=== PATIENT | female | born 1975 | race Caucasian/White ===

== ENCOUNTER → 2017-03-13 | Day surgery (SDC) | payer OTHER ==
[~2017-03-13] MED LIST: ACETAMINOPHEN 1000 MG/100 ML 100 ML IV ONE; ACETAMINOPHEN/HYDROcodone 325 MG/5 MG TAB ONE; BACITRACIN IM FOR SOLN 50,000 UNIT VIAL ONE; BUPIVACAINE/EPINEPHRINE 0.25% 50 ML VIAL ONE; EPINEPHrine HCL (1:1000) 1 MG/ML VIAL OTHER ONE; GENTAMICIN SULFATE 80 MG/2 ML VIAL ONE; KETOROLAC TROMETHAMINE 30 MG/ML (IVP) VIAL IV PUSH ONE; LACTATED RINGER'S 1,000 ML BAG IV ONE; LIDOCAINE 1%/EPINEPHrine 1:200,000 PF SOLN 30 ML VIAL ONE; LIDOCAINE HCL 1% 50 ML VIAL ONE; MEPERIDINE HCL 25 MG/ML VIAL ONE; MIDAZOLAM HCL 2 MG/2 ML VIAL ONE; ONDANSETRON HCL 4 MG/2 ML VIAL IV PUSH ONE; PROPOFOL 100 MG/10 ML INJ IV ONE; SODIUM CHLORIDE 0.9% 20 ML VIAL ONE; ceFAZolin INJ 1,000 MG VIAL ONE
--- NOTE | 2017-03-13 12:33 | TN ---
cc: JEY PHILLIP M.D. DATE OF SURGERY 03/13/2017 PREOPERATIVE DIAGNOSIS Wishes breast enlargement and a history of torso lipodystrophy. PROCEDURE Augmentation mammoplasty and slim lipo SURGEON Jey Phillip MD ANESTHESIA LMA general ESTIMATED BLOOD LOSS Minimal COMPLICATIONS None IMPLANT DATA PLACEMENT AND TECHNIQUE Inframammary retroperitoneal cohesive Natrelle Inspire gels SRM volume 345, serial number of the right breast implant device [id number] and to the left [id number]. Total I's and O's in the slim lipoma 1500 in and 1300 out. Total joules 60,000 joules per square centimeters at 2020. PROCEDURE She was properly consented, marked and properly anesthetized. The skin was sterilized with Betadine solution and sterile draping applied. I also applied a total of 60 cc, 30 per breast of 1% lidocaine and epinephrine mixed with 0.25% Marcaine in a 2:1 ratio. Through an inframammary incision of about 3-1/2 to 4-1/2 a retropectoral plane pocket was developed utilizing blunt instrumentation and electrocautery. Assuring meticulous hemostasis, the pocket was irrigated with triple antibiotic solution and after isolating from the beginning the NAC and other skin, the implant was introduced with utilizing a no-touch technique. The contralateral side was approached in exactly the same manner. The patient was sat up assuring best symmetry possible. The wounds were closed in multiple 2-0 Monocryl suture layers on the breast parenchyma, Pam's fascia, dermis and subcu. After Mastisol, Steri-Strips were applied. At this point, my attention was directed to the torso where tumescent was infiltrated with blunt cannulas. This was done as following. In 1000 cc of normal saline 30 cc of 1% lidocaine plain was mixed with 1 cc of epinephrine 1:1000. Out of those after the upper and lower abdomen, flanks and back were tumesced, we delivered a total of 60,000 joules to 20 total with the Da slim lipoma, 40,000 for the abdomen and 10,000 for each flank, upper flank and back. Evacuation was done with 4.5 and 3.5 mm cannula. Each one of the punctures wounds that was done utilized the 11-blade was closed utilizing 5-0 chromic suture and a Steri-Strip was applied thereafter. Overall, the patient tolerated the procedure well. She was awakened and extubated in the operating room. For dressings, we used absorbent dressings for the breast and a bra and abdominal binder for the abdomen. She was awakened and extubated in the operating room, transferred back to the postanesthesia care unit in stable condition. There were no complications appreciated. The patient tolerated the procedure fairly well. MD MANE Fritz/RONNI /12:03 PM /12:20 PM MTDGlen
== END | disposition home or self-care (01) ==
LOC: ESDC 08:28
PROVIDERS: ATTEND Plastic Surgery
DX: Z41.1 Encounter for cosmetic surgery (principal)
CPT/HCPCS: 00300; 00400; 00402; 15877; 19325; C1789; J0131; J0171; J0690; J1580; J1885; J2175; J2250; J2405; J3010; J7120